=== PATIENT | female | born 2005 | race Caucasian/White ===

== ENCOUNTER 2023-06-02 17:32 | Emergency (ER) | payer OTHER ==
[~2023-06-02] VITALS: Ht 172.7 cm; Wt 56.7 kg
[2023-06-02] MEDS ORDERED: HyDROXyzine HCl 25 MG Tab PO ONE (17:50)
[2023-06-02] MEDS ORDERED: CYCL10 PO (18:00)
[2023-06-02] MEDS ORDERED: ALBUTEROL HFA 90MCG (18:00)
[2023-06-02] MEDS ORDERED: HYDHCL25 PO (18:22)
== END 2023-06-02 18:49 | disposition home or self-care (01) ==
LOC: ER 17:32
DX: F41.1 Generalized anxiety disorder (principal); J45.909 Unspecified asthma, uncomplicated
CPT/HCPCS: 99283; A9270